=== PATIENT | male | born 1990 | race Two or more races ===

== ENCOUNTER 2024-05-05 08:44 | Day surgery (SDC) | payer OTHER ==
[2024-05-03 14:27] LABS: Urine Bacteria None Seen /hpf (None Seen)
[2024-05-03 14:34] LABS: Basophils # (auto) 0 10 ^3/uL (0-0.2); Basophils % (auto) 0.4 % (0.0-2.0); Eosinophils # (auto) 0.2 10 ^3/uL (0-0.8); Eosinophils % (auto) 2.1 % (0.0-7.0); Hematocrit 54.2 % (41.0-53.0); Hemoglobin 18.8 g/dL (13.5-17.5); Lymphocytes # (auto) 2.1 10 ^3/uL (0.4-5.4); Lymphocytes % (auto) 27.5 % (10.0-50.0); Mean Corpuscular Hemoglobin 32.8 pg (28.0-32.0); Mean Corpuscular Hgb Conc. 34.7 g/dL (32.0-36.0); Mean Corpuscular Volume 94.6 fL (80.0-100.0); Monocytes # (auto) 0.8 10 ^3/uL (0-1.3); Monocytes % (auto) 10.6 % (0.0-12.0); Neutrophils # (auto) 4.6 10 ^3/uL (1.6-8.6); Neutrophils % (auto) 59.4 % (37.0-80.0); Nucleated Red Blood Cells % 0.3 %; Platelet Count (auto) 98 10^3/uL (140-450); Red Blood Cells 5.73 10^6/uL (4.5-5.90); Red Cell Distribution Width 12.8 % (11.8-14.3); White Blood Cell 7.7 10^3/uL (4.4-10.8)
[2024-05-03 14:50] LABS: Urine Blood Negative /uL (Negative); Urine Clarity Clear (Clear); Urine Color Yellow (Yellow); Urine Mucus FEW (None Seen); Urine Protein, UAD TRACE (Negative); Urine Specific Gravity 1.027 (1.001-1.035); Urine Squamous Epithelial Cell FEW /hpf (<5); Urine Urobilinogen Normal (Negative); Urine WBC <1 /hpf (0 - 3); Urine pH 7.5 (5.0-9.0)
[2024-05-03 14:57] LABS: INR 1.03 (0.9-1.15); Partial Thromboplastin Time 28.1 SEC (24.5-34.5); Prothrombin Time 10.9 sec (9.3-11.8)
[2024-05-03 15:02] LABS: Albumin 4.4 g/dL (3.2-4.8); Anion Gap 6 (5-15); BUN/Creatinine Ratio 11.5 (10.0-20.0); Blood Urea Nitrogen 11 mg/dL (9-23); Calcium 9.8 mg/dL (8.7-10.4); Carbon Dioxide 27 mmol/L (20-31); Chloride 104 mmol/L (98-107); Glucose 95 mg/dL (74-106); Potassium 4.3 mmol/L (3.5-5.1); Sodium 137 mmol/L (136-145)
[2024-05-03 15:03] LABS: Bilirubin, Total 0.9 mg/dL (0.2-1.0); Total Protein 7.2 g/dL (5.7-8.2)
[2024-05-03 15:05] LABS: Alanine Aminotransferase 82 U/L (7-40); Alkaline Phosphatase 155 U/L (46-116); Aspartate Aminotransferase 50 U/L (13-40)
[~2024-05-05] VITALS: Ht 188 cm; Wt 99.8 kg
[~2024-05-05 08:44] MED LIST: LEVE100012 PO
[2024-05-05] MEDS ORDERED: PROPOFOL 10 MG/ML 20 ML IV ONE (08:45)
[2024-05-05] MEDS ORDERED: SUCCINYLCHOLINE CHLORIDE 20 MG/ML 10ML VIAL IV ONE (10:49)
[2024-05-05] MEDS ORDERED: MEPERIDINE HCL (25 MG/ML) 1ML VIAL ONE (10:50)
[2024-05-05] MEDS ORDERED: fentaNYL CITRATE 100 MCG/2 ML VL ONE (10:54)
[2024-05-05] MEDS: CIPROFLOXACIN 400MG/200ML 200 ML IV ONE (11:05)
[2024-05-05] MEDS ORDERED: ONDANSETRON HCL 4 MG/2 ML VIAL ONE (11:13)
[2024-05-05] MEDS ORDERED: DexAMETHasone SOD PHOS 10MG/1ML VIAL INJ ONE (11:13)
[2024-05-05] MEDS ORDERED: ROCURONIUM 10MG/ML 10ML VIAL IV ONE (11:13)
[2024-05-05] MEDS ORDERED: SUGAMMADEX 200mg/2ml Vial (100MG/ML) IV ONE (11:30)
[2024-05-05] MEDS: LIDOCAINE W/ EPINEPHRINE 1% 20ML VIAL ONE (11:36)
[2024-05-05] MEDS: BUPIVACAINE HCL 50 ML ONE (11:36)
[2024-05-05 11:43] VITALS: TEMP 97; O2SAT 98
[2024-05-05] MEDS ORDERED: ACE3T PO (11:47)
--- NOTE | 2024-05-05 11:49 | DVHOP ---
DATE OF SURGERY: 05/05/2024 PREOPERATIVE DIAGNOSIS: Umbilical hernia. POSTOPERATIVE DIAGNOSIS: Umbilical hernia. SURGEON: Edward Rey MD CRANE RIGGER: Arcadio Christopher. ANESTHESIA: General endotracheal. ANESTHESIOLOGIST: Dr. Mccarthy. PROCEDURE: Repair of umbilical hernia. DESCRIPTION OF PROCEDURE: Under adequate anesthesia, with the patient's skin prepped and draped, the incision was made over the visible bulge in the umbilicus, deepened with electrocautery. Incarcerated fat was excised. The stalk was ligated and reduced. The hernia defect, which measured approximately 3 mm in size, was approximated using interrupted nonabsorbable sutures. The patient remained stable throughout the procedure, left the operating room following an accurate needle and sponge count. Edward Rey MD PF/SAY TID: [id number] RECEIPT: [id number]
[2024-05-05] MEDS ORDERED: ONDANSETRON HCL 4 MG/2 ML VIAL IV ONE (12:00)
[2024-05-05] MEDS ORDERED: ACETAMINOPHEN IV 1000 MG/100ML (10MG/ML) IV PRN (12:00)
[2024-05-05] MEDS ORDERED: HYDROmorphone HCL 2 MG/ML VL/or syr IV PRN (12:00)
[2024-05-05] MEDS ORDERED: MEPERIDINE HCL (25 MG/ML) 1ML VIAL IV PRN (12:00)
[2024-05-05 12:43] VITALS: BP 132/90; PULSE 73; RESP 20; O2SAT 97
== END 2024-05-05 12:51 | disposition home or self-care (01) ==
LOC: SUR 08:44
PROVIDERS: ATTEND Surgery
DX: K42.9 Umbilical hernia without obstruction or gangrene (principal); K92.89 Other specified diseases of the digestive system; Z88.0 Allergy status to penicillin; Z79.899 Other long term (current) drug therapy
CPT/HCPCS: 36415; 49592; 80053; 81001; 85025; 85610; 85730; 86850; 86900; 86901; 88304; C1781; J0330; J0744; J1100; J2175; J2405; J3010; J3490; J2704